=== PATIENT | male | born 1970 | race Caucasian/White ===

== ENCOUNTER 2021-08-22 07:49 | Outpatient (CLI) | payer OTHER, SELFPAY ==
--- NOTE | 2021-08-22 07:59 | CT_ITS ---
STUDY: CT LEFT KNEE WITHOUT CONTRAST REASON FOR EXAM: Left knee sprain, distal femur abnormality. TECHNIQUE: Transaxial CT imaging of the knee was performed. Coronal and sagittal images were reformatted. Individualized dose optimization techniques were used for this CT. COMPARISON: None. FINDINGS: There is a chronic osteochondral defect of the posterior mesial medial femoral condyle with a dislodged fragment (sagittal reconstructions 26-30; coronal reconstructions 31-36). The defect measures approximately 2.4 x 1.4 cm (AP x transverse). Normal lateral femoral condyle and lateral tibial plateau. There is preservation of the articular joint space of the lateral knee compartment. Normal patellofemoral compartment. Normal proximal tibiofibular articulation. There is a joint effusion. The quadriceps tendon is grossly normal. The patellar tendon is grossly normal. Normal Hoffa''s fat pad. There are intra-articular bodies at the anterior medial aspect of the medial femoral condyle (sagittal reconstructions 19-22), the larger measuring 1.1 cm in AP dimension. There is a small popliteal cyst containing small intra-articular bodies (axial images 53-56). CT/Extremity Lower without Contra IMPRESSION: Osteochondral defect of the medial femoral condyle with intra-articular bodies. Joint effusion. Small popliteal cyst containing intra-articular bodies. Electronically Signed: Trino Hauser MD at 14:58 EST ,
== END 2021-08-22 23:59 | disposition home or self-care (01) ==
LOC: CT 07:57
PROVIDERS: Referring Provider Physician Assistant Surgical; Visit Provider Physician Assistant Surgical
DX: S83.8X2A Sprain of other specified parts of left knee, initial encounter (principal); X58.XXXA Exposure to other specified factors, initial encounter; M71.22 Synovial cyst of popliteal space [Baker], left knee
CPT/HCPCS: 73700